=== PATIENT | female | born 1965 | race Caucasian/White ===

== ENCOUNTER 2022-11-10 20:41 | Inpatient (IN) | payer OTHER ==
[2022-11-10 20:51] VITALS: BMI 47.0
[2022-11-10] MEDS ORDERED: FUROSEMIDE 40 MG/4 ML INJECTABLE VIAL IVPUSH ONE (21:05)
[2022-11-10] MEDS ORDERED: FUROSEMIDE 40 MG/4 ML INJECTABLE VIAL ONE (21:49)
[2022-11-10 21:54] LABS: VENOUS BASE EXCESS 2.9 mmol/L (-2-2); VENOUS O2 SATURATION 91.6 % (70-80); VENOUS PCO2 69.5 mmHg (38-52); VENOUS PH 7.293 (7.310-7.410)
[2022-11-10 22:01] LABS: BASO % 0.3 % (0-2.0); EOS % 0.9 % (0-4.5); HEMATOCRIT 58.7 % (32.4-45.2); HEMOGLOBIN 18.9 GM/dL (10.7-15.3); LYMPH % 12.5 % (8-40); MCH 31.4 pg (25.7-33.7); MCHC 32.3 g/dl (32.0-36.0); MEAN CELL VOLUME 97.3 fl (80-96); MEAN PLT VOLUME 9.6 fl (7.5-11.1); MONO % 7.7 % (3.8-10.2); NEUT % 78.6 % (42.8-82.8); PLATELET COUNT 144 10^3/uL (134-434); RBC 6.03 M/mm3 (3.60-5.2); RDW 14.7 % (11.6-15.6); WHITE BLOOD COUNT 8.3 K/mm3 (4.0-10.0)
[2022-11-10 22:09] LABS: INR 1.17 (0.83-1.09); PROTHROMBIN TIME (PATIENT) 13.5 SEC (9.7-13.0)
[2022-11-10 22:12] LABS: ACTIVATED PTT 30.9 SECONDS (25.2-36.5)
[2022-11-10 22:13] LABS: POTASSIUM 5.6 mmol/L (3.5-5.1)
[2022-11-10 22:15] LABS: ALBUMIN 2.7 g/dl (3.4-5.0); CALCIUM 8.5 mg/dL (8.5-10.1)
[2022-11-10 22:16] LABS: BLOOD UREA NITROGEN 29.4 mg/dL (7-18); MAGNESIUM 2.1 mg/dL (1.8-2.4)
[2022-11-10 22:18] LABS: CREATININE 0.9 mg/dL (0.55-1.3)
[2022-11-10 22:20] LABS: BILIRUBIN,TOTAL 0.7 mg/dL (0.2-1); TOT PROT 6.4 g/dl (6.4-8.2)
[2022-11-10 22:24] LABS: N-TERMINAL BNP 2606.6 pg/ml (5-125)
[2022-11-10 23:18] LABS: POTASSIUM 4.5 mmol/L (3.5-5.1)
[2022-11-10 23:20] LABS: BLOOD UREA NITROGEN 28.8 mg/dL (7-18); CALCIUM 8.6 mg/dL (8.5-10.1)
[2022-11-10 23:24] LABS: CREATININE 0.8 mg/dL (0.55-1.3)
[2022-11-11] MEDS ORDERED: FUROSEMIDE 40 MG/4 ML INJECTABLE VIAL IVPUSH ONE (02:00)
[2022-11-11 07:32] LABS: HEMATOCRIT 57.7 % (32.4-45.2); HEMOGLOBIN 18.3 GM/dL (10.7-15.3); MCH 31.3 pg (25.7-33.7); MCHC 31.8 g/dl (32.0-36.0); MEAN CELL VOLUME 98.4 fl (80-96); MEAN PLT VOLUME 9.1 fl (7.5-11.1); PLATELET COUNT 148 10^3/uL (134-434); RBC 5.87 M/mm3 (3.60-5.2); RDW 14.8 % (11.6-15.6); WHITE BLOOD COUNT 8.2 K/mm3 (4.0-10.0)
[2022-11-11 08:21] LABS: CHLORIDE 104 mmol/L (98-107); POTASSIUM 4.8 mmol/L (3.5-5.1); SODIUM 144 mmol/L (136-145)
[2022-11-11 08:22] LABS: CALCIUM 8.9 mg/dL (8.5-10.1)
[2022-11-11 08:23] LABS: ANION GAP 10 MMOL/L (8-16); CO2 31 mmol/L (21-32); MAGNESIUM 1.9 mg/dL (1.8-2.4)
[2022-11-11 08:26] LABS: CREATININE 0.9 mg/dL (0.55-1.3); SGPT/ALT 40 U/L (13-61)
[2022-11-11 08:27] LABS: SGOT/AST 26 U/L (15-37)
[2022-11-11 08:35] LABS: GLUCOSE,RANDOM 86 mg/dL (74-106)
[2022-11-11 08:36] LABS: BLOOD UREA NITROGEN 26.9 mg/dL (7-18)
[2022-11-11 08:39] LABS: PHOSPHOROUS 4.9 mg/dL (2.5-4.9)
[2022-11-11 08:41] LABS: BILIRUBIN,TOTAL 0.8 mg/dL (0.2-1)
[2022-11-11 08:44] LABS: TOT PROT 6.3 g/dl (6.4-8.2)
[2022-11-11] MEDS ORDERED: FUROSEMIDE 40 MG/4 ML INJECTABLE VIAL IVPUSH SCH (10:00)
[2022-11-11] MEDS: LOSARTAN POTASSIUM 50 MG TABLET PO SCH (10:20)
[2022-11-11] MEDS: ENOXAPARIN NA (PORCINE) 40 MG/0.4 ML DISP.SYRIN SQ SCH (10:20)
[2022-11-11 13:11] LABS: ARTERIAL BLD GAS O2 SATURATION 92.9 % (95-98); ARTERIAL BLOOD GAS BASE EXCESS 4.1 mmol/L (-2-2); ARTERIAL BLOOD GAS PO2 75.1 mmHg (80-100); ARTERIAL BLOOD GAS pH 7.285 (7.350-7.450)
[2022-11-11 13:14] LABS: ALLENS TEST POSITIVE
[2022-11-11] MEDS: FUROSEMIDE 40 MG/4 ML INJECTABLE VIAL IVPUSH SCH (14:51)
[2022-11-11] MEDS: ZINC OXIDE 20% TOPICAL OINTMENT 30 GM TUBE TP SCH ×2 (18:23→21:36)
[2022-11-11] MEDS: NYSTATIN 100,000 UNIT/GM TOPICAL CREAM 15 GM TUBE TP SCH ×2 (18:23→21:36)
[2022-11-11 22:32] LABS: URINE APPEARANCE CLEAR; URINE BILIRUBIN NEGATIVE (NEGATIVE); URINE COLOR YELLOW; URINE GLUCOSE (UA) NEGATIVE (NEGATIVE); URINE KETONE NEGATIVE (NEGATIVE); URINE LEUK ESTERASE NEGATIVE (NEGATIVE); URINE NITRITE NEGATIVE (NEGATIVE); URINE PROTEIN TRACE (NEGATIVE); URINE UROBILINOGEN 0.2 mg/dL (0.2-1.0)
[2022-11-11] MEDS: ACETAMINOPHEN 325 MG TABLET (FP) PO PRN (23:45)
[2022-11-12] MEDS: FUROSEMIDE 40 MG/4 ML INJECTABLE VIAL IVPUSH SCH ×2 (06:26→14:01)
[2022-11-12 08:25] LABS: POTASSIUM 4.4 mmol/L (3.5-5.1)
[2022-11-12 08:46] LABS: BLOOD UREA NITROGEN 23.1 mg/dL (7-18); CALCIUM 8.7 mg/dL (8.5-10.1); CREATININE 0.8 mg/dL (0.55-1.3); MAGNESIUM 1.9 mg/dL (1.8-2.4)
[2022-11-12 08:47] LABS: ALBUMIN 2.7 g/dl (3.4-5.0); PHOSPHOROUS 4.7 mg/dL (2.5-4.9)
[2022-11-12 08:49] LABS: BILIRUBIN,TOTAL 1.4 mg/dL (0.2-1)
[2022-11-12 08:50] LABS: TOT PROT 5.8 g/dl (6.4-8.2)
[2022-11-12 09:12] LABS: BASO % 0.3 % (0-2.0); EOS % 0.8 % (0-4.5); HEMATOCRIT 56.4 % (32.4-45.2); HEMOGLOBIN 17.6 GM/dL (10.7-15.3); LYMPH % 13.8 % (8-40); MCH 30.8 pg (25.7-33.7); MCHC 31.2 g/dl (32.0-36.0); MEAN CELL VOLUME 98.9 fl (80-96); MEAN PLT VOLUME 9.1 fl (7.5-11.1); MONO % 8.7 % (3.8-10.2); NEUT % 76.4 % (42.8-82.8); PLATELET COUNT 130 10^3/uL (134-434); WHITE BLOOD COUNT 6.7 K/mm3 (4.0-10.0)
[2022-11-12] MEDS: ZINC OXIDE 20% TOPICAL OINTMENT 30 GM TUBE TP SCH ×2 (10:02→22:49)
[2022-11-12] MEDS: LOSARTAN POTASSIUM 50 MG TABLET PO SCH (10:02)
[2022-11-12] MEDS: ENOXAPARIN NA (PORCINE) 40 MG/0.4 ML DISP.SYRIN SQ SCH (10:02)
[2022-11-12] MEDS: NYSTATIN 100,000 UNIT/GM TOPICAL CREAM 15 GM TUBE TP SCH ×2 (10:02→22:48)
[2022-11-12] MEDS ORDERED: FUROSEMIDE 40 MG/4 ML INJECTABLE VIAL IVPUSH ONE (16:42)
[2022-11-13 05:09] LABS: ARTERIAL BLD GAS O2 SATURATION 92.5 % (95-98); ARTERIAL BLOOD GAS BASE EXCESS 9.6 mmol/L (-2-2); ARTERIAL BLOOD GAS pH 7.357 (7.350-7.450)
[2022-11-13 05:10] LABS: ALLENS TEST POSITIVE
[2022-11-13] MEDS: FUROSEMIDE 40 MG/4 ML INJECTABLE VIAL IVPUSH SCH ×2 (05:33→15:11)
[2022-11-13 08:51] LABS: POTASSIUM 4.2 mmol/L (3.5-5.1)
[2022-11-13 08:58] LABS: ALBUMIN 2.8 g/dl (3.4-5.0)
[2022-11-13 08:59] LABS: BLOOD UREA NITROGEN 17.9 mg/dL (7-18); MAGNESIUM 1.7 mg/dL (1.8-2.4)
[2022-11-13 09:01] LABS: CREATININE 0.7 mg/dL (0.55-1.3)
[2022-11-13 09:03] LABS: BILIRUBIN,TOTAL 1.6 mg/dL (0.2-1); TOT PROT 6.2 g/dl (6.4-8.2)
[2022-11-13 09:15] LABS: BASO % 0.2 % (0-2.0); EOS % 1.1 % (0-4.5); HEMATOCRIT 57.9 % (32.4-45.2); HEMOGLOBIN 18.3 GM/dL (10.7-15.3); LYMPH % 10.4 % (8-40); MCH 30.9 pg (25.7-33.7); MCHC 31.6 g/dl (32.0-36.0); MEAN CELL VOLUME 97.8 fl (80-96); MEAN PLT VOLUME 9.5 fl (7.5-11.1); MONO % 9.4 % (3.8-10.2); NEUT % 78.9 % (42.8-82.8); PLATELET COUNT 135 10^3/uL (134-434); RBC 5.92 M/mm3 (3.60-5.2); RDW 14.8 % (11.6-15.6); WHITE BLOOD COUNT 6.8 K/mm3 (4.0-10.0)
[2022-11-13] MEDS: LOSARTAN POTASSIUM 50 MG TABLET PO SCH (09:56)
[2022-11-13] MEDS: ZINC OXIDE 20% TOPICAL OINTMENT 30 GM TUBE TP SCH ×2 (09:56→22:07)
[2022-11-13] MEDS: ENOXAPARIN NA (PORCINE) 40 MG/0.4 ML DISP.SYRIN SQ SCH (09:56)
[2022-11-13] MEDS: NYSTATIN 100,000 UNIT/GM TOPICAL CREAM 15 GM TUBE TP SCH ×2 (09:56→22:07)
[2022-11-13] MEDS ORDERED: MAGNESIUM 2GM/50ML STERILE WATER IVPB IVPB ONE (16:59)
[2022-11-14] MEDS: FUROSEMIDE 40 MG/4 ML INJECTABLE VIAL IVPUSH SCH ×2 (06:02→13:29)
[2022-11-14 06:50] LABS: BASO % 0.4 % (0-2.0); EOS % 1.7 % (0-4.5); HEMATOCRIT 56.3 % (32.4-45.2); HEMOGLOBIN 17.5 GM/dL (10.7-15.3); LYMPH % 9.4 % (8-40); MEAN CELL VOLUME 99.8 fl (80-96); MEAN PLT VOLUME 10.2 fl (7.5-11.1); NEUT % 79.5 % (42.8-82.8); PLATELET COUNT 139 10^3/uL (134-434); RBC 5.64 M/mm3 (3.60-5.2); RDW 14.5 % (11.6-15.6); WHITE BLOOD COUNT 7.5 K/mm3 (4.0-10.0)
[2022-11-14 07:20] LABS: ALBUMIN 2.7 g/dl (3.4-5.0); BLOOD UREA NITROGEN 12.6 mg/dL (7-18); CALCIUM 8.9 mg/dL (8.5-10.1); MAGNESIUM 2.3 mg/dL (1.8-2.4)
[2022-11-14 07:23] LABS: CREATININE 0.6 mg/dL (0.55-1.3); PHOSPHOROUS 3.7 mg/dL (2.5-4.9)
[2022-11-14 07:25] LABS: BILIRUBIN,TOTAL 1.6 mg/dL (0.2-1)
[2022-11-14] MEDS: ACETAMINOPHEN 325 MG TABLET (FP) PO PRN (08:15)
[2022-11-14] MEDS: LOSARTAN POTASSIUM 50 MG TABLET PO SCH (09:57)
[2022-11-14] MEDS: ENOXAPARIN NA (PORCINE) 40 MG/0.4 ML DISP.SYRIN SQ SCH (09:57)
[2022-11-14] MEDS: NYSTATIN 100,000 UNIT/GM TOPICAL CREAM 15 GM TUBE TP SCH ×2 (09:59→22:01)
[2022-11-14] MEDS: ZINC OXIDE 20% TOPICAL OINTMENT 30 GM TUBE TP SCH ×2 (09:59→22:01)
[2022-11-14] MEDS ORDERED: MAG HYDROX/AL HYDROX/SIMETH 30 ML UNIT-DOSE CUP PO ONE (17:17)
[2022-11-14] MEDS ORDERED: SENNOSIDES 8.6MG TABLET (FP) PO ONE (17:17)
[2022-11-14] MEDS ORDERED: MELATONIN 5 MG TABLETS PO ONE (21:14)
[2022-11-15] MEDS: ACETAMINOPHEN 325 MG TABLET (FP) PO PRN (06:03)
[2022-11-15] MEDS: FUROSEMIDE 40 MG/4 ML INJECTABLE VIAL IVPUSH SCH ×2 (06:04→13:39)
[2022-11-15 08:35] LABS: BASO % 0.3 % (0-2.0); EOS % 1.6 % (0-4.5); HEMATOCRIT 57.3 % (32.4-45.2); HEMOGLOBIN 17.6 GM/dL (10.7-15.3); LYMPH % 9.3 % (8-40); MCH 30.8 pg (25.7-33.7); MCHC 30.8 g/dl (32.0-36.0); MEAN CELL VOLUME 100.1 fl (80-96); MEAN PLT VOLUME 9.9 fl (7.5-11.1); MONO % 9.9 % (3.8-10.2); NEUT % 78.9 % (42.8-82.8); PLATELET COUNT 145 10^3/uL (134-434); RBC 5.73 M/mm3 (3.60-5.2); RDW 14.5 % (11.6-15.6); WHITE BLOOD COUNT 7.4 K/mm3 (4.0-10.0)
[2022-11-15 08:53] LABS: POTASSIUM 4.1 mmol/L (3.5-5.1)
[2022-11-15 08:57] LABS: ALBUMIN 2.8 g/dl (3.4-5.0); CALCIUM 9.1 mg/dL (8.5-10.1)
[2022-11-15 08:58] LABS: BLOOD UREA NITROGEN 14.4 mg/dL (7-18); MAGNESIUM 2.1 mg/dL (1.8-2.4)
[2022-11-15 09:00] LABS: CREATININE 0.6 mg/dL (0.55-1.3)
[2022-11-15 09:01] LABS: BILIRUBIN,TOTAL 1.8 mg/dL (0.2-1); PHOSPHOROUS 3.2 mg/dL (2.5-4.9)
[2022-11-15 09:02] LABS: TOT PROT 6.3 g/dl (6.4-8.2)
[2022-11-15] MEDS: ENOXAPARIN NA (PORCINE) 40 MG/0.4 ML DISP.SYRIN SQ SCH (09:23)
[2022-11-15] MEDS: LOSARTAN POTASSIUM 50 MG TABLET PO SCH (09:23)
[2022-11-15] MEDS: ZINC OXIDE 20% TOPICAL OINTMENT 30 GM TUBE TP SCH ×2 (09:23→22:09)
[2022-11-15] MEDS: NYSTATIN 100,000 UNIT/GM TOPICAL CREAM 15 GM TUBE TP SCH ×2 (09:23→22:08)
[2022-11-15] MEDS: MELATONIN 5 MG TABLETS PO PRN (22:01)
[2022-11-16] MEDS: FUROSEMIDE 40 MG/4 ML INJECTABLE VIAL IVPUSH SCH ×2 (06:20→14:05)
[2022-11-16 08:03] LABS: HEMATOCRIT 56.8 % (32.4-45.2); HEMOGLOBIN 17.9 GM/dL (10.7-15.3); MCH 31.5 pg (25.7-33.7); MCHC 31.6 g/dl (32.0-36.0); MEAN CELL VOLUME 99.8 fl (80-96); MEAN PLT VOLUME 9.7 fl (7.5-11.1); PLATELET COUNT 132 10^3/uL (134-434); RBC 5.69 M/mm3 (3.60-5.2); RDW 14.5 % (11.6-15.6); WHITE BLOOD COUNT 6.3 K/mm3 (4.0-10.0)
[2022-11-16 08:17] LABS: POTASSIUM 3.9 mmol/L (3.5-5.1)
[2022-11-16 08:25] LABS: BLOOD UREA NITROGEN 18.6 mg/dL (7-18); MAGNESIUM 2.2 mg/dL (1.8-2.4)
[2022-11-16 08:29] LABS: CREATININE 0.6 mg/dL (0.55-1.3)
[2022-11-16] MEDS: LOSARTAN POTASSIUM 50 MG TABLET PO SCH (09:07)
[2022-11-16] MEDS: ACETAMINOPHEN 325 MG TABLET (FP) PO PRN (09:07)
[2022-11-16] MEDS: ENOXAPARIN NA (PORCINE) 40 MG/0.4 ML DISP.SYRIN SQ SCH (09:08)
[2022-11-16] MEDS: ZINC OXIDE 20% TOPICAL OINTMENT 30 GM TUBE TP SCH ×2 (09:09→23:00)
[2022-11-16] MEDS: NYSTATIN 100,000 UNIT/GM TOPICAL CREAM 15 GM TUBE TP SCH ×2 (09:10→22:07)
[2022-11-16] MEDS: POLYETHYLENE GLYCOL (HEALTHYLAX) 3350 17 GM PACKET PO SCH (17:16)
[2022-11-16] MEDS: MELATONIN 5 MG TABLETS PO PRN (22:04)
[2022-11-17] MEDS: ACETAMINOPHEN 325 MG TABLET (FP) PO PRN (06:11)
[2022-11-17] MEDS: FUROSEMIDE 40 MG/4 ML INJECTABLE VIAL IVPUSH SCH ×2 (06:11→14:32)
[2022-11-17 08:04] LABS: BASO % 0.2 % (0-2.0); EOS % 3.2 % (0-4.5); HEMATOCRIT 58.1 % (32.4-45.2); HEMOGLOBIN 18.8 GM/dL (10.7-15.3); LYMPH % 11.3 % (8-40); MCH 31.4 pg (25.7-33.7); MCHC 32.4 g/dl (32.0-36.0); MEAN CELL VOLUME 96.8 fl (80-96); MEAN PLT VOLUME 9.6 fl (7.5-11.1); MONO % 9.3 % (3.8-10.2); PLATELET COUNT 145 10^3/uL (134-434); RDW 14.5 % (11.6-15.6); WHITE BLOOD COUNT 6.6 K/mm3 (4.0-10.0)
[2022-11-17 08:15] LABS: POTASSIUM 3.9 mmol/L (3.5-5.1)
[2022-11-17 08:29] LABS: CALCIUM 9.4 mg/dL (8.5-10.1)
[2022-11-17 08:30] LABS: ALBUMIN 2.9 g/dl (3.4-5.0); BLOOD UREA NITROGEN 23.2 mg/dL (7-18); MAGNESIUM 1.9 mg/dL (1.8-2.4)
[2022-11-17 08:33] LABS: CREATININE 0.7 mg/dL (0.55-1.3)
[2022-11-17 08:34] LABS: BILIRUBIN,TOTAL 1.4 mg/dL (0.2-1); PHOSPHOROUS 4.4 mg/dL (2.5-4.9); TOT PROT 6.5 g/dl (6.4-8.2)
[2022-11-17] MEDS: POLYETHYLENE GLYCOL (HEALTHYLAX) 3350 17 GM PACKET PO SCH (10:30)
[2022-11-17] MEDS: ENOXAPARIN NA (PORCINE) 40 MG/0.4 ML DISP.SYRIN SQ SCH (10:30)
[2022-11-17] MEDS: LOSARTAN POTASSIUM 50 MG TABLET PO SCH (10:30)
[2022-11-17] MEDS: NYSTATIN 100,000 UNIT/GM TOPICAL CREAM 15 GM TUBE TP SCH ×2 (10:30→22:21)
[2022-11-17] MEDS: ZINC OXIDE 20% TOPICAL OINTMENT 30 GM TUBE TP SCH ×2 (10:30→22:21)
[2022-11-17] MEDS: MELATONIN 5 MG TABLETS PO PRN (22:20)
[2022-11-18] MEDS: FUROSEMIDE 40 MG/4 ML INJECTABLE VIAL IVPUSH SCH ×2 (06:31→14:58)
[2022-11-18 07:25] LABS: POTASSIUM 3.9 mmol/L (3.5-5.1)
[2022-11-18 07:36] LABS: CALCIUM 9.4 mg/dL (8.5-10.1)
[2022-11-18 07:37] LABS: BLOOD UREA NITROGEN 24.1 mg/dL (7-18); MAGNESIUM 2.2 mg/dL (1.8-2.4)
[2022-11-18 07:40] LABS: CREATININE 0.7 mg/dL (0.55-1.3); TOT PROT 6.5 g/dl (6.4-8.2)
[2022-11-18 07:42] LABS: BILIRUBIN,TOTAL 1.4 mg/dL (0.2-1)
[2022-11-18 08:01] LABS: BASO % 0.8 % (0-2.0); EOS % 3.6 % (0-4.5); HEMATOCRIT 59.6 % (32.4-45.2); HEMOGLOBIN 18.9 GM/dL (10.7-15.3); LYMPH % 13.9 % (8-40); MCH 30.9 pg (25.7-33.7); MCHC 31.7 g/dl (32.0-36.0); MEAN CELL VOLUME 97.3 fl (80-96); MEAN PLT VOLUME 9.6 fl (7.5-11.1); MONO % 10.7 % (3.8-10.2); PLATELET COUNT 141 10^3/uL (134-434); RBC 6.13 M/mm3 (3.60-5.2); RDW 14.9 % (11.6-15.6); WHITE BLOOD COUNT 5.7 K/mm3 (4.0-10.0)
[2022-11-18] MEDS ORDERED: GLYCERIN 1 RECTAL SUPPOSITORY, ADULT RC PRN (08:42)
[2022-11-18] MEDS: LOSARTAN POTASSIUM 50 MG TABLET PO SCH (10:32)
[2022-11-18] MEDS: ENOXAPARIN NA (PORCINE) 40 MG/0.4 ML DISP.SYRIN SQ SCH (10:33)
[2022-11-18] MEDS: NYSTATIN 100,000 UNIT/GM TOPICAL CREAM 15 GM TUBE TP SCH ×2 (10:40→22:42)
[2022-11-18] MEDS: ZINC OXIDE 20% TOPICAL OINTMENT 30 GM TUBE TP SCH ×2 (10:40→22:42)
[2022-11-18] MEDS: POLYETHYLENE GLYCOL (HEALTHYLAX) 3350 17 GM PACKET PO SCH ×2 (14:58→22:42)
[2022-11-18] MEDS: MELATONIN 5 MG TABLETS PO PRN (22:42)
[2022-11-19] MEDS: FUROSEMIDE 40 MG/4 ML INJECTABLE VIAL IVPUSH SCH ×2 (06:53→13:57)
[2022-11-19] MEDS: POLYETHYLENE GLYCOL (HEALTHYLAX) 3350 17 GM PACKET PO SCH ×3 (06:53→22:16)
[2022-11-19 07:49] LABS: BASO % 0.5 % (0-2.0); EOS % 2.9 % (0-4.5); HEMATOCRIT 59.3 % (32.4-45.2); HEMOGLOBIN 18.5 GM/dL (10.7-15.3); LYMPH % 13.1 % (8-40); MCH 30.8 pg (25.7-33.7); MCHC 31.2 g/dl (32.0-36.0); MEAN CELL VOLUME 98.8 fl (80-96); MEAN PLT VOLUME 10.4 fl (7.5-11.1); MONO % 9.7 % (3.8-10.2); NEUT % 73.8 % (42.8-82.8); PLATELET COUNT 136 10^3/uL (134-434); RDW 14.5 % (11.6-15.6); WHITE BLOOD COUNT 6.1 K/mm3 (4.0-10.0)
[2022-11-19 08:01] LABS: POTASSIUM 3.7 mmol/L (3.5-5.1)
[2022-11-19 08:09] LABS: CALCIUM 9.2 mg/dL (8.5-10.1)
[2022-11-19 08:10] LABS: ALBUMIN 2.9 g/dl (3.4-5.0); BLOOD UREA NITROGEN 29.3 mg/dL (7-18); MAGNESIUM 2.3 mg/dL (1.8-2.4)
[2022-11-19 08:13] LABS: PHOSPHOROUS 5.4 mg/dL (2.5-4.9)
[2022-11-19 08:14] LABS: TOT PROT 6.5 g/dl (6.4-8.2)
[2022-11-19 08:23] LABS: CREATININE 0.7 mg/dL (0.55-1.3)
[2022-11-19 08:24] LABS: BILIRUBIN,TOTAL 1.1 mg/dL (0.2-1)
[2022-11-19] MEDS: ENOXAPARIN NA (PORCINE) 40 MG/0.4 ML DISP.SYRIN SQ SCH (10:19)
[2022-11-19] MEDS: LOSARTAN POTASSIUM 50 MG TABLET PO SCH (10:19)
[2022-11-19] MEDS: NYSTATIN 100,000 UNIT/GM TOPICAL CREAM 15 GM TUBE TP SCH ×2 (10:21→22:16)
[2022-11-19] MEDS: ZINC OXIDE 20% TOPICAL OINTMENT 30 GM TUBE TP SCH ×2 (10:22→22:12)
[2022-11-19] MEDS ORDERED: SEVELAMER CARBONATE 0.8 GM POWDER PACKET PO ONE (12:25)
[2022-11-19] MEDS: MELATONIN 5 MG TABLETS PO PRN (22:25)
[2022-11-20] MEDS: FUROSEMIDE 40 MG/4 ML INJECTABLE VIAL IVPUSH SCH ×2 (05:08→13:48)
[2022-11-20] MEDS: POLYETHYLENE GLYCOL (HEALTHYLAX) 3350 17 GM PACKET PO SCH ×4 (05:08→21:27)
[2022-11-20] MEDS ORDERED: IBUPROFEN 200 MG TABLET PO ONE (06:56)
[2022-11-20 07:54] LABS: BASO % 0.3 % (0-2.0); EOS % 2.6 % (0-4.5); HEMATOCRIT 58.2 % (32.4-45.2); HEMOGLOBIN 18.5 GM/dL (10.7-15.3); MCH 31.4 pg (25.7-33.7); MCHC 31.8 g/dl (32.0-36.0); MEAN CELL VOLUME 98.7 fl (80-96); MEAN PLT VOLUME 10.9 fl (7.5-11.1); MONO % 10.3 % (3.8-10.2); NEUT % 72.8 % (42.8-82.8); PLATELET COUNT 131 10^3/uL (134-434); RDW 14.6 % (11.6-15.6); WHITE BLOOD COUNT 6.6 K/mm3 (4.0-10.0)
[2022-11-20 08:10] LABS: POTASSIUM 3.7 mmol/L (3.5-5.1)
[2022-11-20 08:13] LABS: CALCIUM 9.3 mg/dL (8.5-10.1)
[2022-11-20 08:14] LABS: ALBUMIN 3.1 g/dl (3.4-5.0); BLOOD UREA NITROGEN 32.9 mg/dL (7-18); MAGNESIUM 2.6 mg/dL (1.8-2.4)
[2022-11-20 08:17] LABS: CREATININE 0.8 mg/dL (0.55-1.3); PHOSPHOROUS 5.1 mg/dL (2.5-4.9)
[2022-11-20 08:18] LABS: TOT PROT 6.6 g/dl (6.4-8.2)
[2022-11-20] MEDS: LOSARTAN POTASSIUM 50 MG TABLET PO SCH (10:54)
[2022-11-20] MEDS: ENOXAPARIN NA (PORCINE) 40 MG/0.4 ML DISP.SYRIN SQ SCH (10:55)
[2022-11-20] MEDS: ZINC OXIDE 20% TOPICAL OINTMENT 30 GM TUBE TP SCH ×2 (11:01→21:27)
[2022-11-20] MEDS: NYSTATIN 100,000 UNIT/GM TOPICAL CREAM 15 GM TUBE TP SCH ×2 (11:01→21:27)
[2022-11-20] MEDS: MELATONIN 5 MG TABLETS PO PRN (21:26)
[2022-11-21] MEDS: POLYETHYLENE GLYCOL (HEALTHYLAX) 3350 17 GM PACKET PO SCH (06:21)
[2022-11-21] MEDS: FUROSEMIDE 40 MG/4 ML INJECTABLE VIAL IVPUSH SCH (06:21)
[2022-11-21 06:24] VITALS: RESP 20
[2022-11-21 08:41] LABS: BLOOD UREA NITROGEN 30.8 mg/dL (7-18); CALCIUM 9.3 mg/dL (8.5-10.1); MAGNESIUM 2.4 mg/dL (1.8-2.4)
[2022-11-21 08:44] LABS: CREATININE 0.8 mg/dL (0.55-1.3); PHOSPHOROUS 5.9 mg/dL (2.5-4.9)
[2022-11-21 08:45] LABS: BILIRUBIN,TOTAL 0.9 mg/dL (0.2-1); TOT PROT 6.7 g/dl (6.4-8.2)
[2022-11-21 08:58] LABS: BASO % 0.5 % (0-2.0); HEMATOCRIT 59.6 % (32.4-45.2); HEMOGLOBIN 18.7 GM/dL (10.7-15.3); LYMPH % 16.7 % (8-40); MCHC 31.4 g/dl (32.0-36.0); MEAN CELL VOLUME 98.7 fl (80-96); MEAN PLT VOLUME 10.5 fl (7.5-11.1); MONO % 8.5 % (3.8-10.2); NEUT % 71.3 % (42.8-82.8); PLATELET COUNT 128 10^3/uL (134-434); RBC 6.03 M/mm3 (3.60-5.2); RDW 14.5 % (11.6-15.6); WHITE BLOOD COUNT 5.8 K/mm3 (4.0-10.0)
[2022-11-21] MEDS: ENOXAPARIN NA (PORCINE) 40 MG/0.4 ML DISP.SYRIN SQ SCH (10:00)
[2022-11-21] MEDS: LOSARTAN POTASSIUM 50 MG TABLET PO SCH (10:00)
[2022-11-21] MEDS: NYSTATIN 100,000 UNIT/GM TOPICAL CREAM 15 GM TUBE TP SCH (10:01)
[2022-11-21] MEDS: ZINC OXIDE 20% TOPICAL OINTMENT 30 GM TUBE TP SCH (10:01)
[2022-11-21 11:36] LABS: URIC ACID 8.7 mg/dL (2.6-7.2)
[2022-11-21 13:13] VITALS: BP 101/57; PULSE 81; TEMP 98.7
== END 2022-11-21 14:06 | disposition home or self-care (01) | DRG 291 ==
LOC: JER 20:41 → JERBED 21:20 → J4W 11-11 02:34
PROVIDERS: ADMIT Internal Medicine; ATTEND Internal Medicine
DX: I11.0 Hypertensive heart disease with heart failure (principal); I50.33 Acute on chronic diastolic (congestive) heart failure; J96.22 Acute and chronic respiratory failure with hypercapnia; J96.21 Acute and chronic respiratory failure with hypoxia; E87.29 Other acidosis; E66.2 Morbid (severe) obesity with alveolar hypoventilation; Z68.42 Body mass index [BMI] 45.0-49.9, adult; D75.1 Secondary polycythemia; Z99.81 Dependence on supplemental oxygen; K59.00 Constipation, unspecified
CPT/HCPCS: 0241U-QW; 36415; 36600; 71045-TC-FY; 71275-TC; 80048; 80053; 80061; 81003; 82550; 82803; 83615; 83735; 83880; 83970; 84100; 84443; 84484; 84550; 85025; 85027; 85610; 85730; 93005; 93010; 93306-TC; 93970-TC; 94010; 94660; 94761; 97116-GP; 97163-GP; 99285-25; Q9967